=== PATIENT | female | born 1945 | race Caucasian/White ===

== ENCOUNTER 2022-02-28 11:22 | Emergency (ER) | payer MEDICARE, OTHER ==
[~2022-02-28 11:22] MED LIST: AMITIZA24 MCG PO; AMOX TR-K CLV1 EAC4 PO; BENTYL 10MG CAP10 MG PO; CELEXA20 MG PO; CLARITIN10 MG PO; COLACE 100MG C100 MG PO; CORDARONE 200M200 MG PO; COUMADIN5 MG PO; ENULOSE10 GM/15 M PO; FLAGYL500 MG PO; FLEXERIL 10 MG10 MG PO; NEURONTIN 100100 MG PO; NORCO 5-325 TA1 EACH PO; NORVASC 5 MG TAB5 MG PO; OYSTER SHELL C1 EAC2 PO; SYNTHROID 25 M25 MCG PO; VITAMIN B-12500 MCG PO; ZOFRAN ODT4 MG PO
[2022-02-28 13:04] LABS: RED BLOOD COUNT 4.04 M/UL (4.00-5.10); WHITE BLOOD COUNT 8.4 K/UL (4.5-11.0)
[2022-02-28 13:32] LABS: BUN/CREATININE RATIO 15 (0-10)
[2022-02-28] MEDS ORDERED: MACROBID 100 M100 M1 PO (15:49)
[2022-02-28] MEDS ORDERED: PROTONIX40 MG PO (15:51)
== END 2022-02-28 16:05 | disposition home or self-care (01) ==
LOC: ER1 11:22
PROVIDERS: Physician Assistant
DX: N39.0 Urinary tract infection, site not specified (principal); N28.9 Disorder of kidney and ureter, unspecified; I10 Essential (primary) hypertension; J44.9 Chronic obstructive pulmonary disease, unspecified
CPT/HCPCS: 71045; 80053; 81001; 82550; 82553; 83690; 84484; 85025; 87086; 93005; 99284; Q9967